=== PATIENT | female | born 1980 | race Caucasian/White ===

== ENCOUNTER 2024-07-08 05:30 | Inpatient (IN) | payer OTHER ==
[2024-07-08 07:01] VITALS: BMI 46.7
[2024-07-08] MEDS ORDERED: Misoprostol 200 MCG TAB PR PRN (08:35)
[2024-07-08] MEDS ORDERED: Acetaminophen 500 MG TAB PO PRN (08:35)
[2024-07-08] MEDS ORDERED: hydrALAZINE 20 MG/ML VIAL SLOW IVP PRN ×2 (08:35→17:57)
[2024-07-08] MEDS ORDERED: Ondansetron PF 4 MG/2 ML Vial IVP PRN ×2 (08:35→08:57)
[2024-07-08] MEDS ORDERED: Tranexamic Acid 1,000 MG/10 ML VIAL IVP PRN (08:35)
[2024-07-08] MEDS ORDERED: Ibuprofen 800 MG TAB PO PRN (08:35)
[2024-07-08] MEDS ORDERED: Promethazine HCl 25 MG/ML VIAL IM PRN ×2 (08:35→08:57)
[2024-07-08] MEDS ORDERED: Lidocaine 1% (PF) 30 ML VIAL SC PRN (08:35)
[2024-07-08] MEDS ORDERED: Oxytocin 30 units/NS 500 ML 500 ML IV SCH ×2 (08:45)
[2024-07-08] MEDS: Oxytocin 30 units/NS 500 ML 500 ML IV SCH (08:50)
[2024-07-08] MEDS: Lactated Ringer's 1,000 ML IV SCH (08:51)
[2024-07-08] MEDS ORDERED: Lactated Ringer's 500 ML IV PRN (08:57)
[2024-07-08] MEDS ORDERED: Naloxone HCl 0.4 mg/ml Vial IVP PRN ×2 (08:57)
[2024-07-08] MEDS ORDERED: ePHEDrine Sulfate 50 MG/10 ML VIAL SLOW IVP PRN (08:57)
[2024-07-08] MEDS ORDERED: Moisturizing Cream (Eucerin) 113 GM JAR TOP PRN (08:57)
[2024-07-08] MEDS ORDERED: Acetaminophen 325 MG TAB PO PRN (08:57)
[2024-07-08] MEDS ORDERED: fentaNYL 2 mcg/Ropivacaine 0.2% Epidural 100 ML CADD EPIDURAL SCH (09:00)
[2024-07-08] MEDS ORDERED: Communication Order-Pharmacy FS SCH (09:00)
[2024-07-08 09:12] LABS: Hematocrit 39.1 % (34.9-44.5); Mean Corpuscular HGB CONC 33.2 g/dL (32.0-36.0); Mean Corpuscular Hemoglobin 30.2 pg (27.0-33.0); Mean Corpuscular Volume 90.7 fL (81.6-98.3); Mean Platelet Volume 10.9 fL (7.4-10.4); Platelet Count 175 10x3/uL (150-450); RBC Distribution Width 13.9 % (11.5-14.5); Red Blood Cell (RBC) Count 4.31 10x6/uL (3.90-5.03); White Blood Cell (WBC) Count 10.7 10x3/uL (3.5-10.5)
[2024-07-08] MEDS: fentaNYL/Ropivacaine Epidural 100 ML ONE (09:40)
[2024-07-08 09:44] LABS: Syphilis Antibody Nonreactive (Nonreactive); Syphilis Antibody Index 0.05 S/CO (<1.00 Non-Reactive)
[2024-07-08 09:45] LABS: HBsAg Index 0.22 S/CO (0-0.99); Hep B Surf Ag - L&D Non-Reactive S/CO (NonReactive)
[2024-07-08] MEDS ORDERED: Bupivacaine/Epinephrine 0.25% 30 ML VIAL ONE (14:00)
[2024-07-08] MEDS: diphenhydrAMINE 50 MG/ML VIAL IVP PRN (17:09)
[2024-07-08] MEDS ORDERED: diphenhydrAMINE 25 MG CAP PO PRN (17:57)
[2024-07-08] MEDS ORDERED: Bisacodyl 10 MG SUPP PR PRN (17:57)
[2024-07-08] MEDS ORDERED: Preparation H Ointment 28 GM TUBE PR PRN (17:57)
[2024-07-08] MEDS ORDERED: Milk Of Magnesia 30 ML UDCUP PO PRN (17:57)
[2024-07-08] MEDS ORDERED: Benzocaine-Menthol 82.5 ML CAN TOP PRN (17:57)
[2024-07-08] MEDS ORDERED: Lanolin Ointment 7 GM TUBE TOP PRN (17:57)
[2024-07-08] MEDS: Docusate 100 MG CAP PO SCH (19:59)
[2024-07-08] MEDS: Ibuprofen 800 MG TAB PO SCH (19:59)
[2024-07-08] MEDS: Ferrous Sulfate 325 MG TAB PO SCH (22:10)
[2024-07-08] MEDS: Labetalol HCl 100 MG TAB PO SCH (22:12)
[2024-07-08] MEDS: traMADol HCl 50 MG TAB PO PRN (22:12)
[2024-07-09] MEDS: Boostrix 0.5 ML (Tdap) VIAL (>/=7 yrs of age) IM ONE (07:17)
[2024-07-09] MEDS: Ferrous Sulfate 325 MG TAB PO SCH (07:17)
[2024-07-09] MEDS: Prenatal Vitamin 1 TAB PO SCH (08:29)
[2024-07-09] MEDS: Labetalol HCl 100 MG TAB PO SCH (08:30)
[2024-07-09 11:03] VITALS: BP 126/78; TEMP 98
[2024-07-09] MEDS: Ibuprofen 800 MG TAB PO SCH (13:38)
== END 2024-07-09 15:35 | disposition home or self-care (01) | DRG 806 ==
LOC: CSHLD 05:57 → CSHPP 17:38
PROVIDERS: ADMIT Obstetrics & Gynecology; ATTEND Obstetrics & Gynecology
PROC: 10E0XZZ Delivery of Products of Conception, External Approach (ICD-10-PCS; principal; 2024-07-08)
PROC: 0HQ9XZZ Repair Perineum Skin, External Approach (ICD-10-PCS; 2024-07-08)
DX: O24.429 Gestational diabetes mellitus in childbirth, unspecified control (principal); O10.92 Unspecified pre-existing hypertension complicating childbirth; Z37.0 Single live birth; Z3A.38 38 weeks gestation of pregnancy; Z79.82 Long term (current) use of aspirin; Z79.899 Other long term (current) drug therapy; Z88.0 Allergy status to penicillin; O70.0 First degree perineal laceration during delivery
CPT/HCPCS: 36415; 36416; 51702; 85027; 86780; 86850; 86900; 86901; 87340; J1200; J2590; J7120